=== PATIENT | female | born 1985 | race American Indian/Alaskan Native ===

== ENCOUNTER 2019-03-26 20:31 | Outpatient (CLI) | payer MEDICAID ==
[2019-03-26 21:08] VITALS: BP 118/72
[2019-03-26 21:14] LABS: Bilirubin,Urine NEG (Negative); Blood,Urine NEG (Negative); Color,Urine Yellow (Yellow); Mucus,Urine 1+ /HPF
== END 2019-03-26 21:50 | disposition home or self-care (01) ==
LOC: TRG 20:31
PROVIDERS: ATTEND Obstetrics & Gynecology
DX: O62.9 Abnormality of forces of labor, unspecified (principal); Z3A.36 36 weeks gestation of pregnancy
CPT/HCPCS: 81001

== ENCOUNTER 2019-04-14 17:37 | Inpatient (IN) | payer MEDICAID ==
[2019-04-15] MEDS ORDERED: TERBUTALINE 1 MG/1 ML INJ IVP PRN (01:51)
[2019-04-15] MEDS ORDERED: LIDOCAINE (2%) 20 MG/1 ML VIAL 20 ML MDV INFILTRATI ONE (01:51)
[2019-04-15] MEDS ORDERED: AMPICILLIN/NS 2 GM/100 ML 2 GM/100 ML BAG IV ONE (01:51)
[2019-04-15] MEDS ORDERED: MINERAL OIL 30 ML ORAL LIQD PO PRN (01:51)
[2019-04-15] MEDS ORDERED: fentaNYL 100 MCG/2 ML INJ IV PRN (01:51)
[2019-04-15] MEDS ORDERED: TERBUTALINE 1 MG/1 ML INJ SUB-Q PRN (01:51)
[2019-04-15] MEDS ORDERED: ePHEDrine SULFATE 50 MG/1 ML INJ IV PRN (01:51)
[2019-04-15] MEDS ORDERED: BUTORPHANOL 2 MG/1 ML INJ IV PRN (01:51)
[2019-04-15] MEDS ORDERED: OXYTOCIN 20 UNIT/1000ML DRIP 20 UNITS/1,000 ML BAG IV SCH (02:00)
[2019-04-15] MEDS ORDERED: LACTATED RINGERS 1,000 ML IV SCH (02:00)
[2019-04-15 03:04] LABS: Hematocrit 34.3 % (30.3-42.9); Hemoglobin 11.8 gm/dl (10.1-14.3); Mean Corpuscular HGB Conc 34 % (30-34); Mean Corpuscular Volume 89 fl (79-97); Platelet Count 237 K/mm3 (140-440); Red Blood Count 3.87 M/mm3 (3.65-5.03); Red Cell Distribution Width 14.6 % (13.2-15.2)
[2019-04-15] MEDS ORDERED: METOCLOPRAMIDE 10 MG/2 ML INJ IV PRN (03:45)
--- NOTE | 2019-04-15 05:24 | History and Physical Report ---
History of Present Illness Date of examination: 04/15/19 Date of admission: 04/15/19 02:01 Chief complaint: Contractions History of present illness: 33yo G 9 P 3 0 5 3 @ 39 weeks 0 day here with c/o uterine ctxs that started yesterday @ 5am. She reports +FMs but denies VB or LOF. 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 LABS: O+, Antibody Screen marianne, [place], VDRL NR, HBsAg, HIV neg, GC/CT/Trich neg, MSAFP neg, Diabetes Screen 176, 3-hr GTT 81/154/117/130, GBS unknown Past History Past Medical History: asthma, other (sickle cell trait) ACCESS CLERK History: abnormal PAP smear (ASCUS), herpes (+HSV1) Family/Genetic History: diabetes, hypertension Social history: , lives with family, smoking, full code. denies: alcohol abuse, prescription drug abuse, IV drug use - Obstetrical History Expected Date of Delivery: 04/22/19 Actual Gestation: 39 Week(s) 0 Day(s) : 9 Para: 3 Hx # Term Pregnancies: 3 Number of Pregnancies: 0 Spontaneous Abortions: 5 Induced : 0 Number of Living Children: 3 #1 Gender: Female year: 2,008 (01/05/2007) Birthweight: 3.374 kg (7lbs 7oz) Method of Delivery: Vaginal Gestational age at delivery: 39 Complications: none #2 Infant Gender: Female year: 2,[birth year] (11/24/2010) Birthweight: 2.863 kg (6lbs 05lbs) Method of Delivery: Vaginal Gestational age at delivery: 39 Complications: none #3 Infant Gender: Male year: 2,017 (04/07/2016) Birthweight: 3.26 kg (7lbs 3oz) Method of Delivery: Vaginal Complications: none Medications and Allergies Allergies Allergy/AdvReac Type Severity Reaction Status Date / Time No Known Allergies Allergy Unverified 03/26/19 20:49 Active Meds: Active Medications Butorphanol Tartrate (Stadol) 2 mg IV Q2H PRN PRN Reason: Pain , Severe (7-10) Ephedrine Sulfate (Ephedrine Sulfate) 10 mg IV Q2M PRN PRN Reason: Hypotension Fentanyl (Sublimaze) 100 mcg IV Q2H PRN PRN Reason: Labor Pain Oxytocin/Sodium Chloride (Pitocin/Ns 20 Unit/1000ml Drip) 20 units in 1,000 mls @ 125 mls/hr IV DIRECT CHANEL Lactated Ringer's (Lactated Ringers) 1,000 mls @ 125 mls/hr IV DIRECT CHANEL Last Admin: 04/15/19 02:47 Dose: 125 mls/hr Documented by: Ampicillin Sodium (Ampicillin/Ns 1 Gm/50 Ml) 1 gm in 50 mls @ 100 mls/hr IV Q4HR CHANEL; Protocol Oxytocin/Sodium Chloride (Pitocin/Ns 30 Unit/500ml) 30 units in 500 mls @ 0 mls/hr IV TITR CHANEL; Protocol Metoclopramide HCl (Reglan) 10 mg IV Q6H PRN PRN Reason: Indigestion Mineral Oil (Mineral Oil) 30 ml PO QHS PRN PRN Reason: Constipation Terbutaline Sulfate (Brethine) 0.25 mg SUB-Q ONCE PRN PRN Reason: Hyperstimulation/Hypertonicity Terbutaline Sulfate (Brethine) 0.25 mg IVP ONCE PRN PRN Reason: Hyperstimulation/Hypertonicity Review of Systems All systems: negative - Vital Signs Vital signs: Vital Signs Pulse BP Pulse Ox 104 H 114/76 97 04/14/19 19:33 04/14/19 19:33 04/14/19 19:33 Temp Pulse Resp BP Pulse Ox 98.2 F 93 H 18 129/74 99 04/15/19 02:21 04/15/19 05:07 04/15/19 02:21 04/15/19 04:49 04/15/19 05:07 - Obstetrical FHR: auscultation normal, category 1 FHR comments: baseline 140, moderate variability, 15x15 accels, no decels Cervical Dilatation: 6 (per RN) Cervical Effacement Percentage: 70 (per RN) station: -2(per RN) Uterine Contraction Pattern: Regular Results Result Diagrams: 04/15/19 02:33 All other labs normal. Assessment and Plan - Patient Problems (1) 39 weeks gestation of Current Visit: Yes Status: Acute (2) Active labor at term Current Visit: Yes Status: Acute Plan to address problem: Admit to L&D with routine labor orders Start Ampicillin for GBS prophylaxis Oxytocin for labor augmentation Anticipate vaginal delivery
[2019-04-15] MEDS ORDERED: AMPICILLIN/NS 1 GM/50 ML 1 GM/50 ML BAG IV SCH (05:52)
[2019-04-15] MEDS ORDERED: OXYTOCIN DRIP 30 UNITS/500 ML BAG IV SCH (06:00)
--- NOTE | 2019-04-15 09:07 | Progress Note ---
Assessment and Plan - Patient Problems (1) Active labor at term Current Visit: Yes Status: Acute Plan to address problem: Continue routine labor orders AROM @ 0859, clear fluid, tolerated well IV pain meds as desired Anticipate Subjective - Subjective Date of service: 04/15/19 (0859) Principal diagnosis: Active labor Interval history: See admission H & P Patient reports: movement normal, contractions, no vaginal bleeding Objective - Vital Signs Vital Signs: Vital Signs - 12hr 04/14/19 04/14/19 04/14/19 23:00 23:05 23:10 Temperature Pulse Rate 119 H 94 H 94 H Respiratory Rate Blood Pressure Blood Pressure [Left] O2 Sat by Pulse 98 99 98 Oximetry 04/14/19 04/14/19 04/14/19 23:15 23:20 23:25 Temperature Pulse Rate 96 H 94 H 115 H Respiratory Rate Blood Pressure Blood Pressure [Left] O2 Sat by Pulse 98 98 100 Oximetry 04/14/19 04/14/19 04/14/19 23:30 23:35 23:40 Temperature Pulse Rate 94 H 112 H 96 H Respiratory Rate Blood Pressure Blood Pressure [Left] O2 Sat by Pulse 96 97 97 Oximetry 04/15/19 04/15/19 04/15/19 00:46 02:21 02:22 Temperature 98.2 F Pulse Rate 99 H 90 90 Respiratory 18 Rate Blood Pressure 117/76 118/78 Blood Pressure 118/78 [Left] O2 Sat by Pulse Oximetry 04/15/19 04/15/19 04/15/19 02:52 02:57 03:02 Temperature Pulse Rate 88 104 H 92 H Respiratory Rate Blood Pressure Blood Pressure [Left] O2 Sat by Pulse 100 99 100 Oximetry 04/15/19 04/15/19 04/15/19 03:07 03:12 03:17 Temperature Pulse Rate 93 H 98 H 96 H Respiratory Rate Blood Pressure Blood Pressure [Left] O2 Sat by Pulse 99 98 98 Oximetry 04/15/19 04/15/19 04/15/19 03:22 03:27 03:32 Temperature Pulse Rate 96 H 102 H 93 H Respiratory Rate Blood Pressure Blood Pressure [Left] O2 Sat by Pulse 99 98 98 Oximetry 04/15/19 04/15/19 04/15/19 03:37 03:42 03:47 Temperature Pulse Rate 100 H 97 H 95 H Respiratory Rate Blood Pressure Blood Pressure [Left] O2 Sat by Pulse 98 98 98 Oximetry 04/15/19 04/15/19 04/15/19 03:49 03:52 03:57 Temperature Pulse Rate 104 H 104 H 102 H Respiratory Rate Blood Pressure 119/75 Blood Pressure [Left] O2 Sat by Pulse 98 98 Oximetry 04/15/19 04/15/19 04/15/19 04:02 04:07 04:12 Temperature Pulse Rate 109 H 106 H 101 H Respiratory Rate Blood Pressure Blood Pressure [Left] O2 Sat by Pulse 99 99 98 Oximetry 04/15/19 04/15/19 04/15/19 04:17 04:22 04:27 Temperature Pulse Rate 106 H 92 H 120 H Respiratory Rate Blood Pressure Blood Pressure [Left] O2 Sat by Pulse 98 99 99 Oximetry 04/15/19 04/15/19 04/15/19 04:32 04:37 04:42 Temperature Pulse Rate 95 H 102 H 99 H Respiratory Rate Blood Pressure Blood Pressure [Left] O2 Sat by Pulse 98 98 98 Oximetry 04/15/19 04/15/19 04/15/19 04:47 04:49 04:52 Temperature Pulse Rate 108 H 87 95 H Respiratory Rate Blood Pressure 129/74 Blood Pressure [Left] O2 Sat by Pulse 100 98 Oximetry 04/15/19 04/15/19 04/15/19 04:57 05:02 05:07 Temperature Pulse Rate 100 H 103 H 93 H Respiratory Rate Blood Pressure Blood Pressure [Left] O2 Sat by Pulse 99 99 99 Oximetry 04/15/19 04/15/19 04/15/19 05:12 05:17 05:22 Temperature Pulse Rate 96 H 103 H 96 H Respiratory Rate Blood Pressure Blood Pressure [Left] O2 Sat by Pulse 99 99 98 Oximetry 04/15/19 04/15/19 04/15/19 05:27 05:32 05:37 Temperature Pulse Rate 96 H 99 H 98 H Respiratory Rate Blood Pressure Blood Pressure [Left] O2 Sat by Pulse 99 99 98 Oximetry 04/15/19 04/15/19 04/15/19 05:42 05:47 05:51 Temperature Pulse Rate 102 H 103 H 102 H Respiratory Rate Blood Pressure 121/67 Blood Pressure [Left] O2 Sat by Pulse 99 99 Oximetry 04/15/19 04/15/19 04/15/19 05:52 05:57 06:02 Temperature Pulse Rate 96 H 94 H 98 H Respiratory Rate Blood Pressure Blood Pressure [Left] O2 Sat by Pulse 100 99 100 Oximetry 04/15/19 04/15/19 04/15/19 06:07 06:12 06:17 Temperature Pulse Rate 95 H 96 H 98 H Respiratory Rate Blood Pressure Blood Pressure [Left] O2 Sat by Pulse 100 99 100 Oximetry 04/15/19 04/15/19 04/15/19 06:22 06:27 06:32 Temperature Pulse Rate 107 H 98 H 109 H Respiratory Rate Blood Pressure Blood Pressure [Left] O2 Sat by Pulse 100 100 100 Oximetry 04/15/19 04/15/19 04/15/19 06:37 06:42 06:47 Temperature Pulse Rate 107 H 100 H 111 H Respiratory Rate Blood Pressure Blood Pressure [Left] O2 Sat by Pulse 99 99 100 Oximetry 04/15/19 04/15/19 04/15/19 07:00 07:03 07:49 Temperature 97.9 F Pulse Rate 111 H 94 H Respiratory Rate Blood Pressure 92/53 108/67 Blood Pressure [Left] O2 Sat by Pulse Oximetry 04/15/19 04/15/19 04/15/19 08:04 08:09 08:14 Temperature Pulse Rate 100 H 102 H 101 H Respiratory Rate Blood Pressure Blood Pressure [Left] O2 Sat by Pulse 99 99 100 Oximetry 04/15/19 04/15/19 04/15/19 08:19 08:24 08:29 Temperature Pulse Rate 91 H 94 H 96 H Respiratory Rate Blood Pressure Blood Pressure [Left] O2 Sat by Pulse 99 100 99 Oximetry 04/15/19 04/15/19 04/15/19 08:34 08:39 08:44 Temperature Pulse Rate 89 86 100 H Respiratory Rate Blood Pressure Blood Pressure [Left] O2 Sat by Pulse 99 100 99 Oximetry 04/15/19 04/15/19 04/15/19 08:49 08:54 08:59 Temperature Pulse Rate 95 H 99 H 83 Respiratory Rate Blood Pressure 102/67 Blood Pressure [Left] O2 Sat by Pulse 100 99 100 Oximetry - Exam Breasts: deferred Cardiovascular: Regular rate Lungs: Normal air movement Abdomen: Present: other Uterus: Present: firm, other (S = D) FHR: category 1 Uterine Contraction Monitor Mode: External Cervical Dilatation: 6.5 Cervical Effacement Percentage: 70 station: -1 Uterine Contraction Frequency (min): 4-6 Uterine Contraction Pattern: Irregular Uterine Contraction Intensity: Moderate Extremities: normal Deep Tendon Reflex Grade: Normal +2 - Labs Labs: Laboratory Results - last 24 hr 04/15/19 04/15/19 02:33 02:33 WBC 7.3 RBC 3.87 Hgb 11.8 Hct 34.3 MCV 89 MCH 31 MCHC 34 RDW 14.6 Plt Count 237 Blood Type O POSITIVE Antibody Screen Negative
--- NOTE | 2019-04-15 10:15 | Procedure Note ---
OB Delivery Note - Delivery Date of Delivery: 04/15/19 (0928) Surgeon: LAURA CHRISTIANSON (CNM) Estimated blood loss: <100cc - Vaginal Delivery presentation: vertex Delivery position: OA (IRMA) Intrapartum events: none Delivery induction: none Delivery augmentation: rupture of membranes, pitocin Delivery monitor: external FHT, external uterine Route of delivery: Delivery placenta: spontaneous (0935; gonzales, disposed per hospital policy) Delivery cord: 3 umbilical vessels, other (tight cord around right foot/ankle, reduced at delivery) Episiotomy: none Delivery laceration: none Anesthesia: none Delivery comments: Called to room to find delivered (out x 45 secs per RN). Legs elevated back and body immediately delivered without difficulty. Cord tightly wrapped around infant's right foot/ankle, immediately released after delivery. Baby placed directly to maternal abdomen, stimulated and began to cry. Cord double clamped and cut by FOB after cessation of pulsation. Placenta delivered spontaneously, gonzales, disposed per hospital policy. Uterus firm @ U, hemostasis maintained. Perineum intact. Baby and mother safe, stable and bonding well. - A at 1 minute: 7 at 5 minutes: 9 Gender: Male (Weight: 3526 gms (7lbs 12.3ozs) 20 inches)
[2019-04-15] MEDS ORDERED: oxyCODONE /ACETAMINOPHEN 5-325MG TAB PO PRN (11:00)
[2019-04-15] MEDS ORDERED: LANOLIN/ZINC/DIMETHICONE (LANSINOH) 7 GM TP PRN (11:00)
[2019-04-15] MEDS ORDERED: WITCH HAZEL/ GLYCERIN PAD TP PRN (11:00)
[2019-04-15] MEDS ORDERED: diphenhydrAMINE 25 MG CAP PO PRN (11:00)
[2019-04-15] MEDS ORDERED: ONDANSETRON 4 MG/2 ML INJ IV PRN (11:00)
[2019-04-15] MEDS ORDERED: PROMETHAZINE 25 MG TAB PO PRN (11:00)
[2019-04-15] MEDS: IBUPROFEN 600 MG TAB PO SCH ×2 (11:02→18:25)
[2019-04-15] MEDS: FERROUS SULFATE 325 MG TAB PO SCH (12:04)
[2019-04-15] MEDS ORDERED: MAGNESIUM HYDROXIDE (MOM) ORAL LIQD UDC PO PRN (22:00)
[2019-04-15 22:02] LABS: Hematocrit 31.5 % (30.3-42.9); Hemoglobin 10.6 gm/dl (10.1-14.3)
[2019-04-16] MEDS: IBUPROFEN 600 MG TAB PO SCH ×2 (00:12→05:46)
[2019-04-16] MEDS: FERROUS SULFATE 325 MG TAB PO SCH (09:24)
[2019-04-16] MEDS ORDERED: PRENATAL VIT27-FE FUMARATE-FOLIC ACID VIT TAB PO SCH (10:00)
--- NOTE | 2019-04-16 10:15 | Progress Note ---
Assessment and Plan A: PP Day #1 Stable P: Follow Routine Orders D/C Home today per patient request RTO in 6 Weeks Subjective - Subjective Date of service: 04/16/19 Principal diagnosis: Active labor Patient reports: appetite normal, voiding normally, pain well controlled, flatus, ambulating normally Nash: doing well, bottle feeding Objective - Vital Signs Latest vital signs: Vital Signs Temp Pulse Resp BP BP Pulse Ox 04/16/19 04:19 98.2 F 84 20 113/76 100 04/15/19 23:57 98.4 F 77 20 114/72 99 04/15/19 21:32 98.2 F 82 20 112/75 100 04/15/19 16:09 97.5 F L 77 20 117/78 98 04/15/19 12:02 20 04/15/19 11:50 97.2 F L 89 20 142/93 97 04/15/19 11:07 88 134/79 04/15/19 11:04 98.8 F Intake and Output 04/15/19 04/16/19 04/16/19 22:59 06:59 14:59 Intake Total 600 120 Output Total 500 Balance 100 120 Intake: Oral 600 120 Output: Urine 500 Void 500 Other: Total, Intake Amount 240 120 Total, Output Amount 500 # Voids Void 1 1 - Exam Breasts: Present: normal Cardiovascular: Present: Regular rate Lungs: Present: Clear to auscultation, Normal air movement Abdomen: Present: normal appearance, soft, normal bowel sounds Uterus: Present: normal, firm, fundal height below umbilicus Extremities: Present: normal
--- NOTE | 2019-04-16 10:16 | Discharge Summary ---
Providers - Providers Date of Admission: 04/15/19 02:01 Date of discharge: 04/16/19 Attending physician: JACOB CARNES MD Primary care physician: JACOB CARNES MD Hospitalization Reason for admission: active labor Delivery: Episiotomy: none Laceration: none Other procedures: none complications: none Discharge diagnosis: IUP at term delivered baby: male Condition at discharge: Good Disposition: DC-01 TO HOME OR SELFCARE Plan - Provider Discharge Summary Activity: routine, no sex for 6 weeks, no heavy lifting 4 weeks, no strenuous exercise Diet: routine Instructions: routine Additional instructions: [] Smoking cessation referral if applicable(refer to patient education folder for contact #) [] Refer to [facility] Booklet Call your doctor immediately for: * Fever > 100.5 * Heavy vaginal bleeding ( >1 pad per hour) * Severe persistent headache * Shortness of breath * Reddened, hot, painful area to leg or breast * Drainage or odor from incision. * Keep incision clean and dry at all times and follow doctor's instructions regarding bathing/showering - Follow up plan Follow up: JACOB CARNES MD [Primary Care Provider] - 6 Weeks
[2019-04-16 18:29] VITALS: BP 104/68
== END 2019-04-16 20:28 | disposition home or self-care (01) | DRG 775 ==
LOC: TRG 17:37 → LD 04-15 02:01 → OB 04-15 11:55
PROVIDERS: ADMIT Obstetrics & Gynecology; ATTEND Obstetrics & Gynecology
PROC: 10E0XZZ Delivery of Products of Conception, External Approach (ICD-10-PCS; principal; 2019-04-15)
DX: O69.89X0 Labor and delivery complicated by other cord complications, not applicable or unspecified (principal); Z3A.39 39 weeks gestation of pregnancy; Z37.0 Single live birth; J45.909 Unspecified asthma, uncomplicated; O99.52 Diseases of the respiratory system complicating childbirth; O99.334 Smoking (tobacco) complicating childbirth; F17.210 Nicotine dependence, cigarettes, uncomplicated; Z82.49 Family history of ischemic heart disease and other diseases of the circulatory system; Z83.3 Family history of diabetes mellitus
CPT/HCPCS: 36415; 85014; 85018; 85027; 86850; 86900; 86901; G0378; J0290; J2590; J7120